=== PATIENT | female | born 1995 | race Caucasian/White ===

== ENCOUNTER 2021-01-03 12:59 | Outpatient (CLI) | payer BC, SELFPAY ==
[2021-01-03 13:44] LABS: Hematocrit 44.7 % (37.0-47.0); Hemoglobin 16.2 g/dL (12.0-15.0)
== END 2021-01-03 13:00 | disposition home or self-care (01) ==
PROVIDERS: PCP Family Medicine
DX: F64.9 Gender identity disorder, unspecified (principal)
CPT/HCPCS: 36415; 85014; 85018

== ENCOUNTER 2021-03-17 09:19 | Outpatient (CLI) | payer BC, SELFPAY ==
[2021-03-17 10:37] LABS: Alanine Aminotransferase 30 U/L (4-35); Albumin Level 4.8 g/dL (3.5-5.1); Alkaline Phosphatase 72 U/L (38-126); Anion Gap 11 mmol/L (8-16); Aspartate Amino Transferase 29 U/L (14-36); Bilirubin,Total 1.2 mg/dL (0.2-1.3); Blood Urea Nitrogen 14 mg/dL (7-17); Calcium 9.8 mg/dL (8.4-10.2); Carbon Dioxide 28 mmol/L (22-30); Chloride 101 mmol/L (98-107); Cholesterol 207 mg/dL (0-200); Estimated Glomerular Filt Rate > 60; Glucose 91 mg/dL (65-105); HDL Direct 27 mg/dL; Sodium 140 mmol/L (137-145); Triglycerides 143 mg/dL (<150)
[2021-03-17 10:48] LABS: LDL Cholesterol Direct 122 mg/dL
[2021-03-17 11:22] LABS: Hematocrit 47.9 % (37.0-47.0); Hemoglobin 16.7 g/dL (12.0-15.0)
[2021-03-20 16:08] LABS: Testosterone Total 693 ng/dL (2-45)
== END 2021-03-17 09:20 | disposition home or self-care (01) ==
PROVIDERS: PCP Family Medicine
DX: F64.9 Gender identity disorder, unspecified (principal)
CPT/HCPCS: 36415; 80053; 80061; 84402; 84403; 85014; 85018

== ENCOUNTER 2021-05-09 16:58 | Outpatient (CLI) | payer OTHER, SELFPAY ==
[2021-05-09 17:52] LABS: Add Urine Microscopic? YES; Appearance Urine Cloudy (Clear); Bacteria Urine Trace /hpf; Bilirubin Urine Negative (Negative); Blood Urine 1+ (Negative); Color Urine Yellow (Yellow); Glucose Urine UA Negative (Negative); Ketones Urine Negative (Negative); Leukocyte Esterase Ur 3+ LEU/UL (Negative); Mucus Urine Rare /lpf; Nitrate Urine Negative (Negative); Protein Urine Negative (Negative); Squamous Epithelial Cell Urine Many /hpf (Few); Urobilinogen Urine Negative mg/dL (<2.0); WBC Urine >75 /hpf
== END 2021-05-09 16:59 | disposition home or self-care (01) ==
LOC: ANHLAB 17:02
PROVIDERS: PCP Family Medicine; Visit Provider Family Medicine
DX: R30.0 Dysuria (principal)
CPT/HCPCS: 81001; 87077; 87086; 87088; 87186

== ENCOUNTER 2021-09-13 14:56 | Outpatient (CLI) | payer OTHER, SELFPAY ==
[2021-09-13 15:25] LABS: Hematocrit 41.7 % (37.0-47.0); Hemoglobin 15.2 g/dL (12.0-15.0)
[2021-09-13 15:36] LABS: Alanine Aminotransferase 23 U/L (4-35); Albumin Level 4.8 g/dL (3.5-5.1); Alkaline Phosphatase 70 U/L (38-126); Anion Gap 10 mmol/L (8-16); Aspartate Amino Transferase 26 U/L (14-36); Bilirubin,Total 1.6 mg/dL (0.2-1.3); Blood Urea Nitrogen 16 mg/dL (7-17); Calcium 9.4 mg/dL (8.4-10.2); Carbon Dioxide 25 mmol/L (22-30); Chloride 103 mmol/L (98-107); Estimated Glomerular Filt Rate > 60; Glucose 86 mg/dL (65-110); Potassium 3.7 mmol/L (3.4-5.0); Sodium 138 mmol/L (137-145)
[2021-09-18 10:25] LABS: Testosterone Total 936 ng/dL (2-45)
== END 2021-09-13 14:57 | disposition home or self-care (01) ==
PROVIDERS: PCP Family Medicine
DX: F41.9 Anxiety disorder, unspecified (principal); F32.A Depression, unspecified; F64.9 Gender identity disorder, unspecified; Z79.890 Hormone replacement therapy; Z78.9 Other specified health status
CPT/HCPCS: 36415; 80053; 84403; 85014; 85018

== ENCOUNTER 2022-01-11 15:52 | Outpatient (CLI) | payer OTHER, SELFPAY ==
[2022-01-15 08:58] LABS: Testosterone Total 831 ng/dL (2-45)
== END 2022-01-11 15:53 | disposition home or self-care (01) ==
PROVIDERS: PCP Family Medicine
DX: Z51.81 Encounter for therapeutic drug level monitoring (principal); Z79.890 Hormone replacement therapy
CPT/HCPCS: 36415; 84403

== ENCOUNTER 2022-06-09 10:22 | Outpatient (CLI) | payer OTHER, SELFPAY ==
[2022-06-09 10:38] LABS: Hematocrit 42.8 % (37.0-47.0); Hemoglobin 15.5 g/dL (12.0-15.0)
[2022-06-09 11:01] LABS: Alanine Aminotransferase 24 U/L (6-35); Albumin Level 4.7 g/dL (3.5-5.1); Alkaline Phosphatase 75 U/L (38-126); Anion Gap 8 mmol/L (8-16); Aspartate Amino Transferase 26 U/L (14-36); Bilirubin,Total 0.9 mg/dL (0.2-1.3); Blood Urea Nitrogen 12 mg/dL (7-17); Calcium 8.9 mg/dL (8.4-10.2); Carbon Dioxide 27 mmol/L (22-30); Chloride 107 mmol/L (98-107); Cholesterol 196 mg/dL (0-200); Estimated Glomerular Filt Rate > 60; Glucose 96 mg/dL (65-110); HDL Direct 36 mg/dL; Potassium 3.8 mmol/L (3.4-5.0); Sodium 142 mmol/L (137-145); Triglycerides 146 mg/dL (<150)
[2022-06-09 11:12] LABS: LDL Cholesterol Direct 123 mg/dL
[2022-06-13 12:56] LABS: Testosterone Total 341 ng/dL (2-45)
== END 2022-06-09 10:23 | disposition home or self-care (01) ==
LOC: ANHLAB 10:23
PROVIDERS: PCP Family Medicine
DX: F64.9 Gender identity disorder, unspecified (principal); F41.9 Anxiety disorder, unspecified; F32.A Depression, unspecified; Z79.890 Hormone replacement therapy; Z78.9 Other specified health status
CPT/HCPCS: 36415; 80053; 80061; 84402; 84403; 85014; 85018

== ENCOUNTER 2022-09-06 14:43 | Emergency (ER) | payer OTHER, SELFPAY ==
[2022-09-06 15:05] VITALS: BP 122/78; PULSE 105; RESP 18; TEMP 37.3; O2SAT 97
--- NOTE | 2022-09-06 16:01 | ED.URI ---
HPI - URI/Sore Throat General Chief Complaint: Upper Respiratory Infection Stated Complaint: Sore Throat Time Seen by Provider: 09/06/22 15:50 Source: patient, RN notes reviewed and old records reviewed Mode of arrival: ambulatory Limitations: no limitations History of Present Illness HPI Narrative: 27 year old female/ trans-gender male presents to [facility] care with complaints of cough, sinus congestion and drainage that is green with sore throat for the past 2 days. Patient reports no known fevers 99F in clinic. Patient reports taking OTC medication with a decongestant for symptoms. Patient report receiving COVID shots booster and also flu shot. MD elicited complaint: cough and sore throat Onset (ago): day(s) (2) Treatments prior to arrival: other Related Data Home Medications Medication Instructions Recorded Confirmed escitalopram oxalate 10 mg tablet 10 mg PO DAILY 01/09/22 09/06/22 (Lexapro) testosterone cypionate 200 mg/mL 80 mg IM ONCE 01/09/22 09/06/22 intramuscular kit Allergies Allergy/AdvReac Type Severity Reaction Status Date / Time No Known Allergies Allergy Verified 09/06/22 14:54 Review of Systems Review of Systems: CONSTITUTIONAL: Denies malaise, chills, sweats, or fever. EYES: Denies visual changes, redness, or discharge. ENT: Reports rhinorrhea, congestion, sinus pain, no otalgia and positive for sore throat. CARDIOVASCULAR: Denies chest pain, palpitations, or edema. RESPIRATORY: Reports cough.? Denies dyspnea. GASTROINTESTINAL: Denies abdominal pain, nausea, vomiting, diarrhea SKIN: Denies rash or itching. MUSCULOSKELETAL: Denies myalgia. NEUROLOGIC reports headache. All systems reviewed & are unremarkable except as noted in HPI and below PMFSH Past Medical History Medical History Gender dysphoria UTI (urinary tract infection) Family History Family History Other Diabetes mellitus Heart disease Social History Social History Social History: Single Smoking status: Never smoker Second hand tobacco smoke exposure: Yes Alcohol intake: current Drinks per week: 3 Substance use: never Substance use type: does not use Additional occupation/education comments: master degree in history Gender identity (if verbalized by the patient): Transgender Male Sexual Orientation (if Verbalized by the Patient): Lesbian, Scott, or Homosexual Spiritual care concerns: No Agree to blood products: Yes Comments At time of signature, agree with nursing past medical, surgical, social and family history. There is no relevant family history pertinent to the presenting complaint Exam Narrative: GENERAL: Well-appearing, well-nourished, and in no acute distress. HEAD: Normocephalic EYES: PERRLA, conjunctivae clear ENT: Nares clear, turbinates edematous and erythematous, clear/ light green discharge. Mucous membranes moist. TM pearly [place] with dull light reflex bilaterally; no tragal tenderness. Oropharynx erythematous without lesions. Tonsils mildly enlarged and without exudate, no drooling, no hoarseness, no trismus, uvula midline. NECK: Supple. No lymphadenopathy CHEST: Clear to auscultation, breath sounds equal. No wheezing, rhonchi, rales, or stridor. No respiratory distress, speaks in full sentences.cough noted SAO2 97% on room air HEART: Regular rate and rhythm. No murmur heard. SKIN: Warm, dry, no rash. NEURO: Alert and oriented x3. PSYCH: Normal mood and affect Course Course Emergency Course: Patient is aware of diagnosis, understands and agrees to treatment plan.? Anticipatory guidance given.? Patient agrees to follow-up as directed and is aware of reasons to seek care at the emergency department. Portions of this record may have been created with voice recognition software Lev
== END 2022-09-06 16:17 | disposition home or self-care (01) ==
PROVIDERS: Emergency Provider Registered Nurse; PCP Family Medicine
DX: J06.9 Acute upper respiratory infection, unspecified (principal); R05.9 Cough, unspecified
CPT/HCPCS: 87081; 87880; 99213; G0463

== ENCOUNTER 2022-09-18 14:11 | Emergency (ER) | payer OTHER, SELFPAY ==
--- NOTE | 2022-09-18 14:53 | ED.LOWEXIN ---
HPI - Extremity Injury (Lower) General Chief Complaint: Extremity Injury, Lower Stated Complaint: rt knee injury Related Data Home Medications Medication Instructions Recorded Confirmed escitalopram oxalate 10 mg tablet 10 mg PO DAILY 01/09/22 09/18/22 (Lexapro) testosterone cypionate 200 mg/mL 80 mg IM ONCE 01/09/22 09/18/22 intramuscular kit Allergies Allergy/AdvReac Type Severity Reaction Status Date / Time No Known Allergies Allergy Verified 09/18/22 14:49 PMFSH Past Medical History Medical History Gender dysphoria UTI (urinary tract infection) Family History Family History Other Diabetes mellitus Heart disease Social History Social History Social History: Single Smoking status: Never smoker Second hand tobacco smoke exposure: Yes Alcohol intake: current Drinks per week: 3 Substance use: never Substance use type: does not use Additional occupation/education comments: master degree in history Gender identity (if verbalized by the patient): Transgender Male Sexual Orientation (if Verbalized by the Patient): Lesbian, Scott, or Homosexual Spiritual care concerns: No Agree to blood products: Yes Discharge Plan Discharge Prescriptions: No Action escitalopram oxalate [Lexapro] 10 mg tablet 10 mg PO DAILY testosterone cypionate 200 mg/mL kit 80 mg IM ONCE Rx Instructions: as a single dose Follow-up/Referrals: Rachelle Strickland MD [Primary Care Provider] -
[2022-09-18 14:54] VITALS: BP 126/74; PULSE 71; RESP 16; TEMP 36.3; O2SAT 100
--- NOTE | 2022-09-18 15:11 | ED.SKABFB ---
HPI - Skin/Abscess/Foreign Bdy General Chief complaint: Skin/Abscess/Foreign Body Stated complaint: rt knee injury Time Seen by Provider: 09/18/22 15:00 Source: patient Mode of arrival: ambulatory Limitations: no limitations History of Present Illness HPI narrative: Ashleigh is a 27-year-old male patient presenting to the clinic today with complaints of knee pain for the past couple days. He thinks he have some an infected hair on his knee. States that he has gotten these sores in the past in the back of his head. He denies any fever or chills but states that the area on his anterior knee does feel warm and painful to touch. Related Data Home Medications Medication Instructions Recorded Confirmed escitalopram oxalate 10 mg tablet 10 mg PO DAILY 01/09/22 09/18/22 (Lexapro) testosterone cypionate 200 mg/mL 80 mg IM ONCE 01/09/22 09/18/22 intramuscular kit Allergies Allergy/AdvReac Type Severity Reaction Status Date / Time No Known Allergies Allergy Verified 09/18/22 14:49 Review of Systems Review of Systems: Pertinent positives per HPI. Patient denies any fever, chills, rash, headache, visual changes, dizziness, cough, runny nose, sore throat, shortness of breath, chest pain, palpitations, nausea, vomiting, diarrhea, constipation, abdominal pain, or any urinary issues. [facility] Past Medical History Medical History Gender dysphoria UTI (urinary tract infection) Family History Family History Other Diabetes mellitus Heart disease Social History Social History Social History: Single Smoking status: Never smoker Second hand tobacco smoke exposure: Yes Alcohol intake: current Drinks per week: 3 Substance use: never Substance use type: does not use Additional occupation/education comments: master degree in history Gender identity (if verbalized by the patient): Transgender Male Sexual Orientation (if Verbalized by the Patient): Lesbian, Scott, or Homosexual Spiritual care concerns: No Agree to blood products: Yes Comments At the time of my signature, I reviewed and agree with the nursing past medical, surgical, social, and family history. There is no relevant family history pertinent to the patient complaint. Exam Narrative: General: Well-developed, well nourished, in no apparent distress Head: Normocephalic, atraumatic. Cardio: Regular rate and rhythm, s1 and s2 normal, no murmur appreciated. Resp: Clear to auscultation bilaterally, no rhonchi, rales, wheezing or rubs. Integumentary: [place], warm, and dry, infected hair sore with redness, erythema, and tenderness to palpation over the right anterior knee-induration measuring 4 x 6 cm. Course Course Emergency Course: Portions of this record may have been created with voice recognition software. Level of Care: Express Care Visit Vital Signs Vital signs: Vital Signs Temperature 36.3 C L 09/18/22 14:54 Pulse Rate 71 09/18/22 14:54 Respiratory Rate 16 09/18/22 14:54 Blood Pressure 126/74 09/18/22 14:54 Pulse Oximetry 100 09/18/22 14:54 Oxygen Delivery Room Air 09/18/22 14:54 Temperature 36.3 C L 09/18/22 14:54 Pulse Rate 71 09/18/22 14:54 Respiratory Rate 16 09/18/22 14:54 Blood Pressure 126/74 09/18/22 14:54 Pulse Oximetry 100 09/18/22 14:54 Oxygen Delivery Room Air 09/18/22 14:54 Vital signs reviewed MDM - Skin/Abscess/Foreign Bdy MDM Narrative Medical decision making narrative: At the time of visit patient is resting comfortably on the exam table. I suspect patient has an infected hair follicle that has caused some cellulitis of his right knee. Prescription for Bactrim was sent to the pharmacy supportive measures were discussed with the patient he voiced understanding of discharge instructions and agrees to treatme
== END 2022-09-18 15:15 | disposition home or self-care (01) ==
PROVIDERS: Emergency Provider Nurse Practitioner Family; PCP Family Medicine
DX: L03.115 Cellulitis of right lower limb (principal); F64.9 Gender identity disorder, unspecified
CPT/HCPCS: 99213; G0463